=== PATIENT | female | born 2000 | race Two or more races ===

== ENCOUNTER 2023-10-12 12:28 | Emergency (ER) | payer OTHER ==
[~2023-10-12] VITALS: Ht 172.7 cm; Wt 92.4 kg
[2023-10-12] MEDS ORDERED: IBUP200T46 PO (12:47)
[2023-10-12] MEDS ORDERED: MUCI1TAB16 PO (12:47)
[2023-10-12] MEDS ORDERED: ACET325C5 PO (15:33)
[2023-10-12] MEDS ORDERED: IBUP-1022 PO (15:33)
[2023-10-12 15:48] VITALS: BP 117/63; TEMP 97.6; O2SAT 98
== END 2023-10-12 15:49 | disposition home or self-care (01) ==
LOC: M ED 12:28
DX: U07.1 COVID-19 (principal); J02.9 Acute pharyngitis, unspecified; Z79.1 Long term (current) use of non-steroidal anti-inflammatories (NSAID); Z79.899 Other long term (current) drug therapy

== ENCOUNTER → 2023-11-09 | Outpatient (CLI) | payer OTHER ==
[~2023-11-09] MED LIST: ACET325C5 PO; IBUP-1022 PO; IBUP200T46 PO; MUCI1TAB16 PO
[2023-11-09 08:51] LABS: ESTRADIOL 71.6 PG/ML; PROGESTERONE 29.27 NG/ML
== END ==
LOC: M LAB 07:42
PROVIDERS: ATTEND Obstetrics & Gynecology Reproductive Endocrinology
DX: Z31.49 Encounter for other procreative investigation and testing (principal)